=== PATIENT | male | born 1945 | race Caucasian/White ===

== ENCOUNTER 2016-12-24 10:44 | Day surgery (SDC) | payer MEDICARE ==
[2016-12-24] MEDS ORDERED: FENTANYL PF 100MCG/2ML VIAL IV ONE (14:22)
[2016-12-24] MEDS ORDERED: PROPOFOL 10 MG/ML VIAL IV ONE (14:22)
[2016-12-24] MEDS ORDERED: LIDOCAINE 2% MDV (20MG/ML) 20ML VIAL IV ONE (14:22)
--- NOTE | 2016-12-27 12:30 | Operative Note ---
DATE OF SURGERY: 12/24/2016 SURGEON: Blanquita Meza MD OPERATION: ESOPHAGOGASTRODUODENOSCOPY. INDICATIONS: This is a 71-year-old male with a history of esophagitis who presented for esophagogastroduodenoscopy. POSTOPERATIVE DIAGNOSES: 1. Grade 3 ulcerative esophagitis. 2. Mild gastritis. 3. Normal duodenum. ANESTHESIA: Sedation is per Anesthesia. Pulse oximetry was monitored throughout the procedure to maintain O2 saturation of 90% or greater. Supplemental oxygen was administered via nasal cannula. Cardiac and vital signs were monitored throughout the duration of the procedure, and they were stable. The procedure of esophagogastroduodenoscopy and risks and benefits of the procedure, including the risk of bleeding and perforation, among others, were explained to the patient who voiced understanding and desired to have the procedure done. Physical examination was performed, and the patient was found stable for sedation. PROCEDURE: The patient was placed in the left lateral position. Sedation was initiated. A plastic bite block was inserted into the oral cavity. The Olympus [id number] gastroscope was introduced into the oral cavity and advanced to the proximal esophagus without difficulty. The esophageal mucosa was carefully examined upon introduction of the gastroscope. The proximal, mid, and distal esophageal mucosa appeared normal. In the distal esophagus there were columns of ulcerations but no mass lesions or any strictures noted. The gastroscope was then advanced into the stomach, and surveillance of the stomach revealed diffuse erythema involving the gastric body and antrum but no ulcers were noted. The gastroscope was then advanced to the descending duodenum without difficulty. The duodenal bulb and descending duodenum appeared normal. The gastroscope was then withdrawn into the stomach and retroflexion was performed. There were no other lesions noted. The gastroscope was then withdrawn while the procedures were terminated. He tolerated the procedure well without any immediate complications. Multiple gastric and distal esophageal biopsies were obtained. RECOMMENDATIONS: 1. The patient is to continue on his proton pump inhibitors. 2. The patient is to have a repeat esophagogastroduodenoscopy in about 2-3 months to assess healing of the ulcers. Thank you for allowing me to participate in the care of your patient. CC: KIRK BROWN MD, FACP [facility]
== END 2016-12-24 12:30 | disposition home or self-care (01) ==
LOC: HOP 10:44
PROVIDERS: ATTEND Internal Medicine Gastroenterology
DX: K22.10 Ulcer of esophagus without bleeding (principal); K29.70 Gastritis, unspecified, without bleeding; I10 Essential (primary) hypertension; E78.00 Pure hypercholesterolemia, unspecified
CPT/HCPCS: 43235; 00740; J3010

== ENCOUNTER 2017-06-03 10:44 | Day surgery (SDC) | payer MEDICARE ==
[2017-06-03] MEDS ORDERED: PROPOFOL 10 MG/ML VIAL IV ONE (10:45)
[2017-06-03] MEDS ORDERED: FENTANYL PF 100MCG/2ML VIAL IV ONE (10:45)
[2017-06-03] MEDS ORDERED: LIDOCAINE 2% MDV (20MG/ML) 20ML VIAL IV ONE (10:45)
--- NOTE | 2017-06-07 07:30 | Operative Note ---
DATE OF SURGERY: 06/03/2017 SURGEON: Blanquita Meza MD OPERATION: ESOPHAGOGASTRODUODENOSCOPY. INDICATIONS: This is a 71-year-old male with history of gastric ulcer who presented for repeat esophagogastroduodenoscopy for evaluation of healing of the gastric ulcer. POSTOPERATIVE DIAGNOSES: 1. LA class B esophagitis. 2. Diffuse gastritis with healed ulcer. 3. Normal duodenum. ANESTHESIA: Sedation is per Anesthesia. Pulse oximetry was monitored throughout the procedure to maintain O2 saturation of 90% or greater. Supplemental oxygen was administered via nasal cannula. Cardiac and vital signs were monitored throughout the duration of the procedure, and they were stable. The procedure of esophagogastroduodenoscopy and risks and benefits of the procedure, including the risk of bleeding and perforation, among others, were explained to the patient who voiced understanding and agreed to have the procedure done. Physical examination was performed, and the patient was found stable for sedation. PROCEDURE: The patient was placed in the left lateral position. Sedation was initiated. A plastic bite block was inserted into the oral cavity. The Olympus [id number] gastroscope was introduced into the oral cavity and advanced to the esophagus without difficulty. The esophageal mucosa was carefully examined upon introduction of the gastroscope. The proximal and mid esophageal mucosa appeared normal. In the distal esophagus there was LA class B esophagitis but no strictures were noted. The gastroscope was then advanced into the stomach, and surveillance of the stomach revealed diffuse erythema involving the gastric body and antrum with healed ulcer at the previous site. The gastroscope was then advanced to the descending duodenum without difficulty. The duodenal bulb and descending duodenum appeared normal. The gastroscope was then withdrawn into the stomach and retroflexion was performed. There were no other lesions noted. The gastroscope was then straightened and withdrawn while carefully examining the gastric and esophageal mucosa. No other lesions noted. Multiple prior ulcer site biopsies were obtained as well as distal esophageal biopsies. The patient remained with stable vital signs and was transferred to the recovery room. RECOMMENDATIONS: 1. The patient is to continue his proton pump inhibitor. 2. We will see him back in the office as needed. Thank you for allowing me to participate in the care of your patient. CC: KIRK BROWN MD, FACP [facility]
== END 2017-06-03 12:22 | disposition home or self-care (01) ==
LOC: HOP 10:44
PROVIDERS: ATTEND Internal Medicine Gastroenterology
DX: K20.8 Other esophagitis (principal); K29.70 Gastritis, unspecified, without bleeding
CPT/HCPCS: 43239; 00731; J3010

== ENCOUNTER 2017-08-16 13:59 | Emergency (ER) | payer MEDICARE ==
--- NOTE | 2017-08-16 15:08 | Emergency Department Record ---
History of Present Illness - General Chief complaint: Male Urogenital Problem Stated complaint: BLOOD IN URINE Time Seen by Provider: 08/16/17 14:31 Source: Patient Mode of Arrival: Ambulatory Limitations: No limitations - History of Present Illness Initial comments: pt was running 2 miles today as he does everyday when he had a sudden burning in his penis. he went and urinated and found his urine to be bloody. he has never had this happen before MD Complaint: Other Onset/Timin -: Hour(s) Location: Penis Consistency: Intermittent Improves with: None Worsens with: Urination Reports: Blood in urine - Related Data Home Medications Medication Instructions Recorded Confirmed Last Taken Amlodipine Besylate [Norvasc] 10 mg PO DAILY 08/16/17 08/16/17 Unknown Clopidogrel Bisulfate [Plavix] 75 mg PO DAILY 08/16/17 08/16/17 Unknown Hydrochlorothiazide [Hctz] 25 mg PO DAILY 08/16/17 08/16/17 Unknown Allergies Allergy/AdvReac Type Severity Reaction Status Date / Time No Known Allergies Allergy Unverified 02/04/16 12:50 Travel Screening - Travel/Exposure Within Last 30 Days Have you traveled within the last 30 days?: No Review of Systems Reviewed: No additional complaints except as noted below Constitutional: Reports: As per HPI. Denies: Chills, Fever, Malaise, Night sweats, Weakness, Weight change Eyes: Reports: As per HPI. Denies: Eye discharge, Eye pain, Photophobia, Vision change ENT: Reports: As per HPI. Denies: Congestion, Dental pain, Ear pain, Epistaxis , Hearing loss, Throat pain Respiratory: Reports: As per HPI. Denies: Cough, Dyspnea, Hemoptysis, Stridor, Wheezes Cardiovascular: Reports: As per HPI. Denies: Arrhythmia, Chest pain, Dyspnea on exertion, Edema, Murmurs, Orthopnea, Palpitations, Paroxysmal nocturnal dyspnea, Rheumatic Fever, Syncope Endocrine: Reports: As per HPI. Denies: Fatigue, Heat or cold intolerance, Polydipsia, Polyuria Gastrointestinal: Reports: As per HPI. Denies: Abdominal pain, Constipation, Diarrhea, Hematemesis, Hematochezia, Melena, Nausea, Vomiting Genitourinary: Reports: As per HPI, Hematuria. Denies: Dysuria, Frequency, Incontinence, Retention, Testicular pain, Testicular mass, Urgency Musculoskeletal: Reports: As per HPI. Denies: Arthralgia, Back pain, Gout, Joint swelling, Myalgia, Neck pain Skin: Reports: As per HPI. Denies: Bruising, Change in color, Change in hair/ nails, Lesions, Pruritus, Rash Neurological: Reports: As per HPI. Denies: Abnormal gait, Confusion, Headache, Numbness, Paresthesias, Seizure, Tingling, Tremors, Vertigo, Weakness Psychiatric: Reports: As per HPI. Denies: Anxiety, Auditory hallucinations, Depression, Homicidal thoughts, Suicidal thoughts, Visual hallucinations Hematological/Lymphatic: Reports: As per HPI. Denies: Anemia, Blood Clots, Easy bleeding, Easy bruising, Swollen glands Past Medical History - SOCIAL HISTORY Smoking Status: Never smoker Alcohol Use: None Drug Use: None - RESPIRATORY Hx Respiratory Disorders: No - CARDIOVASCULAR Hx Cardio Disorders: Yes Hx Hypertension: Yes Hx Coronary Stent: Yes (12 years ago) Comment:: high cholesterol. [employer] Dr De La Cruz - NEURO Hx Neuro Disorders: No - GI Hx GI Disorders: Yes Hx Diverticulitis: Yes Hx Reflux: Yes Hx Ulcer: Yes (follow up) - Hx Genitourinary Disorders: No - ENDOCRINE Hx Endocrine Disorders: No - MUSCULOSKELETAL Hx Musculoskeletal Disorders: No - PSYCH Hx Psych Problems: No - HEMATOLOGY/ONCOLOGY Hx Hematology/Oncology Disorders: No Family Medical History Any Significant Family History?: Yes Hx HTN: Mother Hx Liver Disease: Father *Liver Comment: hemochromatosis Physical Exam - General General Appearance: Alert, Oriented x3, Cooperative, No acute distress - Head Head exam: Normal inspection - Eye Eye exam: Normal appearance, PERRL, EOMI Pupils: Normal accommodation - ENT ENT exam: Normal exam, Mucous membranes moist, Normal external ear exam, Normal orophraynx, TM's normal bilaterally Ear exam: Normal external inspection. negative: External canal tenderness Nasal Exam: Normal inspection. negative: Discharge, Sinus tenderness Mouth exam: Normal external inspection, Tongue normal Teeth exam: Normal inspection. negative: Dental caries Throat exam: Normal inspection. negative: Tonsillar erythema, Tonsillar exudate - Neck Neck exam: Normal inspection, Full ROM. negative: Tenderness - Respiratory Respiratory exam: Normal lung sounds bilaterally. negative: Respiratory distress - Cardiovascular Cardiovascular Exam: Regular rate, Normal rhythm, Normal heart sounds - GI/Abdominal GI/Abdominal exam: Soft, Normal bowel sounds. negative: Tenderness - Rectal Rectal exam: Deferred - exam: Deferred - Extremities Extremities exam: Normal inspection, Full ROM, Normal capillary refill. negative: Tenderness - Back Back exam: Reports: Normal inspection, Full ROM. Denies: Muscle spasm, Rash noted, Tenderness - Neurological Neurological exam: Alert, CN II-XII intact, Normal gait, Oriented X3 - Psychiatric Psychiatric exam: Normal affect, Normal mood - Skin Skin exam: Dry, Intact, Normal color, Warm Course Vital Signs 08/16/17 14:03 Temperature 97.9 F Pulse Rate 61 Respiratory 18 Rate Blood Pressure 137/77 Pulse Ox 99 Disposition Disposition: Discharge Clinical Impression: Hematuria Qualifiers: Hematuria type: gross Qualified Code(s): R31.0 - Gross hematuria Disposition: Home, Self-Care Condition: (1) Good Additional Instructions: follow up with urologist. return sooner if worse Referrals: TERESA ARIAS M.D. [MEDICAL DOCTOR] - [facility] [Provider Group] Forms: Patient Portal Access Quality - Quality Measures Quality Measures: N/A - Blood Pressure Screening Does Patient Have Any of the Following: No Blood Pressure Classification: Pre-Hypertensive BP Reading Systolic Measurement: 137 Diastolic Measurement: 77 Screening for High Blood Pressure: < Pre-Hypertensive BP, F/U Documented > [ [id number]] Pre-Hypertensive Follow-up Interventions: Follow-up with rescreen every year.
[2017-08-16 16:03] LABS: URINE APPEARANCE CLEAR; URINE BILIRUBIN NEGATIVE (NEGATIVE); URINE BLOOD LARGE (NEGATIVE); URINE COLOR YELLOW; URINE GLUCOSE (UA) NEGATIVE (NEGATIVE); URINE KETONE TRACE (NEGATIVE); URINE LEUKOCYTE ESTERASE NEGATIVE (NEGATIVE); URINE NITRITE NEGATIVE (NEGATIVE); URINE PROTEIN TRACE (NEGATIVE); URINE UROBILINOGEN 0.2 E.U./dL (0.20 - 1.00)
[2017-08-16 16:32] LABS: URINE EPITHELIAL CELLS 0 - 2 (FEW); URINE WBC 0 - 2 (0-2/hpf)
== END 2017-08-16 17:33 | disposition home or self-care (01) ==
LOC: ER 13:59
DX: R31.0 Gross hematuria (principal); I10 Essential (primary) hypertension
CPT/HCPCS: 81001; 99282